=== PATIENT | male | born 1950 | race Caucasian/White ===

== ENCOUNTER → 2016-07-25 | Outpatient (CLI) | payer OTHER ==
[~2016-07-25] MED LIST: AMLO-110 PO; B-CO1TAB21 PO; FLUO10CA48 PO; FLUT0.15 INTNAS; GABA1CAP PO; LVT/20 PO; OMEGCAP2 PO; PANT40TA PO; TRIA37.5 PO; [UNRECOGNIZED DRUG - OTHER] TOP
[2016-07-25 17:58] LABS: BASO % 0.2 %; BASO ABS # 0.02 K/uL (0-0.2); COMPLETE YES; EOS % 2.2 %; HEMATOCRIT 45.9 % (42-52); IG% 0.2 %; LYMPH % 10.4 %; LYMPH ABS # 1.01 K/uL (1.2-3.4); MEAN CELL VOLUME 86.9 fL (80-100); MEAN CORPUSCULAR HEMOGLOBIN 31.1 pg (25-34); MEAN CORPUSCULAR HGB CONC 35.7 g/dl (32-36); MONO % 6.9 %; NEUT % 80.1 %; PLATELET COUNT 195 K/uL (130-400); RED BLOOD COUNT 5.28 M/uL (4.7-6.1); WHITE BLOOD COUNT 9.72 K/uL (4.8-10.8)
[2016-07-25 19:03] LABS: ALT/SGPT 28 U/L (12-78); AST/SGOT 12 U/L (15-37); BLOOD UREA NITROGEN 25 mg/dl (7-18); BUN/CREATININE RATIO 19.5 (10-20); CARBON DIOXIDE 23 mmol/L (21-32); CHLORIDE 105 mmol/L (98-107); CHOLESTEROL 235 mg/dl (0-200); GLUCOSE 99 mg/dl (70-99); POTASSIUM 3.8 mmol/L (3.5-5.1); SODIUM 140 mmol/L (136-145)
[2016-07-25 19:13] LABS: CHOLESTEROL/HDL RATIO 5.9; HDL CHOLESTEROL 40 mg/dl; LDL CHOLESTEROL CALCULATED 161 mg/dl; TRIGLYCERIDES 170 mg/dl (0-150); VERY LOW DENSITY LIPOPROT CALC 34 mg/dl
[2016-07-26 06:30] LABS: ESTIMATED AVERAGE GLUCOSE 120 mg/dl; HA1C FLAG Normal (Normal)
--- NOTE | 2016-07-30 13:55 | CODING QUERY MEDICAL NECESSITY ---
SUPPORTING DIAGNOSIS NEEDED Dr. Quezada, A supporting diagnosis is required for the test/procedure performed on this patient in order for us to be reimbursed by the patient's insurance. Please provide a supporting diagnosis for the following test/procedure listed below next to the test name along with your signature. *If there is no additional diagnosis for this patient that would support the following test/procedure please document that below next to the test/procedure. Test(s)/Procedure(s) that require a supporting diagnosis: * [id number] GLYCATED HEMOGLOBIN DIAGNOSIS: DATE OF SERVICE: 07/25/16 Provider Signature: Date: Thank you Ko Ragland [facility] Information Management Once completed, please kindly fax back to [phone] For questions please call [phone]
== END | disposition home or self-care (01) ==
LOC: C.LABMFLN 12:25
PROVIDERS: ATTEND Family Medicine
DX: I10 Essential (primary) hypertension (principal); E78.5 Hyperlipidemia, unspecified; R73.03 Prediabetes; R53.83 Other fatigue; R73.09 Other abnormal glucose

== ENCOUNTER → 2016-10-07 | Outpatient (CLI) | payer OTHER ==
[~2016-10-07] MED LIST changes: +OPTIRAY 320 IV PRN
--- NOTE | 2016-10-07 14:28 | DIAGNOSTIC IMAGING REPORT ---
CHEST CT WITH CONTRAST CT DOSE: 517.81 mGy.cm HISTORY: Cough. Esophagitis. Reflux. Z00.00 Health [id number] Chronic [id number] Chronic reflux e TECHNIQUE: Multiaxial CT images of the chest were performed following the intravenous administration of contrast. COMPARISON: None. FINDINGS: The lungs are clear. The mediastinal vascular structures are within normal limits. No mediastinal or hilar lymphadenopathy. No pleural effusion or pneumothorax. Limited views of the upper abdomen demonstrate a normal liver and spleen. IMPRESSION: No significant abnormality identified within the chest. Electronically signed by: Miguelangel Bishop M.D. 10/07/2016 2:27 PM Dictated Date/Time: 10/07/2016 2:20 PM
== END | disposition home or self-care (01) ==
LOC: C.CTS 13:54
PROVIDERS: ATTEND Physician Assistant
DX: Z00.00 Encounter for general adult medical examination without abnormal findings (principal); R05 Cough; K21.0 Gastro-esophageal reflux disease with esophagitis; J44.9 Chronic obstructive pulmonary disease, unspecified

== ENCOUNTER → 2016-10-15 | Outpatient (CLI) | payer OTHER ==
[~2016-10-15] MED LIST changes: -OPTIRAY 320 IV PRN
--- NOTE | 2016-10-16 11:11 | PULMONARY FUNCTION TEST ---
CLINICAL DATA: A 66-year-old male with a height of 68 inches and a weight [address] Elier Quezada for evaluation of a chronic cough. Spirometry pre- and post-bronchodilator and diffusion capacity was performed. FINDINGS: Pre-bronchodilator spirometry is within normal limits. FVC was 112% of predicted. FEV1 was 111% of predicted. The FEF 25-75 was 97% of predicted. There was no significant improvement after inhaled bronchodilator. Diffusion capacity was normal at 113% of predicted. IMPRESSION: Normal baseline spirometry and DLCO without significant improvement after inhaled bronchodilator. MTDD
== END | disposition home or self-care (01) ==
LOC: C.RC 11:07
PROVIDERS: ATTEND Physician Assistant
DX: Z00.00 Encounter for general adult medical examination without abnormal findings (principal); J44.9 Chronic obstructive pulmonary disease, unspecified; K21.0 Gastro-esophageal reflux disease with esophagitis; R05 Cough

== ENCOUNTER → 2016-11-25 | Outpatient (CLI) | payer OTHER ==
--- NOTE | 2016-11-25 09:39 | DIAGNOSTIC IMAGING REPORT ---
SINUS CT CT DOSE: 297.29 mGycm HISTORY: Sinusitis. Pain. R05 Chronic ogzxeF79.9 Chronic sinusitis TECHNIQUE: Multiaxial CT images of the paranasal sinuses were performed and reformatted in the coronal plane without the use of contrast. COMPARISON: 10/26/2015 FINDINGS: The frontal sinuses, ethmoid air cells, sphenoid sinuses, and bilateral maxillary antra are clear. The mastoid air cells are clear. The bilateral ostiomeatal units are patent. The nasal septum is midline. The orbits are unremarkable. IMPRESSION: The paranasal sinuses and mastoid air cells are clear. No change from the prior study. Electronically signed by: Miguelangel Bishop M.D. 11/25/2016 9:37 AM Dictated Date/Time: 11/25/2016 9:36 AM
== END | disposition home or self-care (01) ==
LOC: C.CTS 09:03
PROVIDERS: ATTEND Family Medicine
DX: R05 Cough (principal); J32.9 Chronic sinusitis, unspecified

== ENCOUNTER → 2017-07-01 | Outpatient (CLI) | payer OTHER ==
[2017-07-01 13:07] LABS: ALT/SGPT 32 U/L (12-78); AST/SGOT 15 U/L (15-37); BLOOD UREA NITROGEN 27 mg/dl (7-18); CALCIUM 9.3 mg/dl (8.5-10.1); CARBON DIOXIDE 31 mmol/L (21-32); CREATININE 1.43 mg/dl (0.60-1.40); GLUCOSE 111 mg/dl (70-99); POTASSIUM 4.3 mmol/L (3.5-5.1); SODIUM 136 mmol/L (136-145)
[2017-07-01 13:12] LABS: CHOLESTEROL 244 mg/dl (0-200); LDL CHOLESTEROL CALCULATED 174 mg/dl
== END | disposition home or self-care (01) ==
LOC: C.LABMFLN 10:33
PROVIDERS: ATTEND Family Medicine
DX: Z12.5 Encounter for screening for malignant neoplasm of prostate (principal); R51 Headache; I10 Essential (primary) hypertension; E78.5 Hyperlipidemia, unspecified

== ENCOUNTER 2019-09-07 17:01 | Inpatient (IN) ==
[2019-09-07] MEDS ORDERED: ASPIRIN CHEW 324 MG PO STA (17:24)
[2019-09-07] MEDS ORDERED: SODIUM CHLORIDE 0.9% 1000ML 1,000 ML IV SCH (17:30)
--- NOTE | 2019-09-07 17:38 | Emergency Department Note ---
Impression & Plan Chest pain, Breath shortness, A-fib ED Provider Note NAME: BETY CORCORAN AGE: 68 SEX: M : 1950 ARRIVES VIA: Walk-In INFORMANT: Patient ED PROVIDER(S): Davion Carlos DO CHIEF COMPLAINT: Chest pain and shortness of breath HPI: Patient is a 68-year-old male who was diagnosed with a viral pneumonia 3 weeks ago. He was treated for influenza A. He had coughing, shortness of breath and chest tightness at that time. He notes the coughing and shortness of breath and chest tightness have all been improving over the past 3 weeks up until 3 to 4 days ago. He notes the shortness of breath and chest tightness has been getting worse with exertion. He notes it is there constantly and has been there constantly for the past 3 weeks. He does admit to some sinus congestion and a stuffy nose for the past 3 to 4 days but notes that this has improved as he has been taking [id number] decongestants today. Patient does admit to a history of hypertension. His dad had an OR and in his 50s. He denies any recent trips travel coughing up blood history of blood clots history or history of clotting disorders. He denies smoking. ROS: See above HPI for pertinent positives & negatives. A total of 10 systems reviewed and were otherwise negative. PAST MEDICAL HISTORY:See Below PAST SURGICAL HISTORY:See Below FAMILY HISTORY:See Below SOCIAL HISTORY:See Below HOME MEDICATIONS:See Below ALLERGIES:See Below VITALS:See Below PHYSICAL EXAMINATION: GENERAL: Sitting up in bed, alert, well appearing, well nourished, no distress, non-toxic EYE EXAM: normal conjunctiva. OROPHARYNX: no exudate, no erythema, lips, buccal mucosa, and tongue normal and mucous membranes are moist NECK: supple, no nuchal rigidity, no adenopathy, non-tender LUNGS: Clear to auscultation. Normal chest wall mechanics HEART: no murmurs, S1 normal and S2 normal ABDOMEN: abdomen soft, non-tender, normo-active bowel sounds, no masses, no rebound or guarding. UPPER EXTREMITIES: upper extremities are grossly normal. LOWER EXTREMITIES: No pitting edema. calfs are equal B/L NEURO EXAM: Normal sensorium, cranial nerves II-XII grossly intact, normal speech, no gross weakness of arms, no gross weakness of legs. MEDICAL DECISION MAKING: Patient is a 68-year-old male with a past medical history of hypertension whose dad at the age of 52 from an OR presents the ER for chest pain and shortness of breath associated with exertion. He has had this intermittently for the past 3 weeks as he was recently diagnosed with influenza. He notes rece ntly over the past 3 to 4 days it has significantly worsened. Upon arrival IV was established blood work was obtained. Pulse ox is 90 to 92%. He was given aspirin. CBC shows no significant leukocytosis or anemia. Diet dimer was negative. BMP with LFTs bilirubin and troponin was unremarkable. Lipase was normal. Influenza AMB was negative. Chest x-ray without any focal infiltrate. On the monitor patient did have a run of wide-complex tachycardia which did appear to be consistent with A. fib has it was irregular. Patient and family were updated at bedside. Discussed with the hospitalist for observation. Hospitalist did request CT of the chest which was performed and unremarkable. Triage Nursing notes reviewed. Prior medical records reviewed Vital Signs: reviewed and remarkable for no significant abnormalities Differential diagnosis: Differential diagnoses includes but is not limited to acute coronary syndrome, myocardial infarction, pericarditis, pulmonary embolus, aortic dissection, pneumonia, pneumothorax, musculoskeletal, shingles, esophageal. ER treatment provided: See below Diagnostics interpreted by me: ECG: Sinus bradycardia rate of 57 Normal axis No PVCs Normal QTC Improvement from previous in regards to the lateral and high lateral leads and the T wave inversions are now resolved. Cardiac Monitoring: Sinus rhythm rate of 67 Laboratory studies: As stated above and show below. Imaging studies: Audible AP upright 1 view of the chest shows no focal infiltrate or pneumothorax Consultation(s): Dr. Adrián Spencer. 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 Beliefs That Will Affect Care: None Current Living Situation: Spouse Feels Safe at Home: Yes Smoking Status: Never smoker Tobacco Type: cigarettes ; Second Hand Exposure: No ; Hx Alcohol Use: No Hx Substance Use: No Allergies Allergies Allergy/AdvReac Type Severity Reaction Status Date / Time No Known Allergies Allergy Verified 09/07/19 19:40 Home Meds Home Medications Medication Instructions Recorded Confirmed pantoprazole 40 mg PO QAM 03/10/18 09/07/19 vitamin B complex 1 cap PO QAM 03/10/18 09/07/19 coenzyme Q10 10 mg capsule 10 mg PO DAILY cap 03/15/19 09/07/19 red yeast rice 600 mg capsule 600 mg PO BID 03/15/19 09/07/19 Lactobacillus acidophilus 1,000 mmu cells PO DAILY 05/11/19 09/07/19 [Probiotic Acidophilus] albuterol sulfate 2 puffs INH Q4H PRN 09/07/19 09/07/19 amlodipine 10 mg PO QPM 09/07/19 09/07/19 cyclobenzaprine 5 mg PO TID PRN 09/07/19 09/07/19 doxazosin 6 mg PO QPM 09/07/19 09/07/19 fluticasone propionate [Allergy 2 sprays INTRANASAL DAILY PRN 09/07/19 09/07/19 Relief (fluticasone)] meloxicam 15 mg PO DAILY PRN 09/07/19 09/07/19 Previous Rx's Medication Instructions Recorded fluoxetine 10 mg tablet 10 mg PO QAM #90 tab 01/18/19 Results & Data (ED) Vital Signs Vital Signs - 24 hr 09/07/19 17:09 09/07/19 17:44 09/07/19 17:48 Temperature 36.8 C Temperature Source Oral Pulse Rate 99 H 64 Pulse Rate from SpO2 Sensor 65 Respiratory Rate 18 21 Blood Pressure 132/67 137/72 Blood Pressure Mean 88 82 Pulse Oximetry 98 95 92 Oxygen Delivery Method Room Air Room Air Room Air Sepsis Recent Fever Within 48 Hours No Sepsis New/Unexplained Change in Mental Status No Sepsis Action Taken by Nursing No Action Required 09/07/19 18:04 09/07/19 19:00 Temperature Temperature Source Pulse Rate 61 63 Pulse Rate from SpO2 Sensor 62 63 Respiratory Rate 17 20 Blood Pressure 146/80 H Blood Pressure Mean 111 Pulse Oximetry 93 91 Oxygen Delivery Method Room Air Sepsis Recent Fever Within 48 Hours Sepsis New/Unexplained Change in Mental Status Sepsis Action Taken by Nursing Laboratory Data Result diagrams: 09/07/19 18:00 09/07/19 18:00 Lab Results 09/07/19 09/07/19 09/07/19 Range/Units 17:42 18:00 18:00 WBC 6.56 (4.8-10.8) K/uL RBC 4.28 L (4.7-6.1) M/uL Hgb 12.7 L (14.0-18.0) g/dL Hct 38.0 L (42-52) % MCV 88.8 (80-100) fL MCH 29.7 (25-34) pg MCHC 33.4 (32-36) g/dL RDW Std Deviation 49.3 H (36.4-46.3) fL RDW Coeff of Angie 15.3 H (11.5-14.5) % Plt Count 125 L (130-400) K/uL MPV 9.5 (7.4-10.4) fL Immature Gran % (Auto) 0.2 % Neut % (Auto) 76.9 % Lymph % (Auto) 13.4 % [place] % (Auto) 5.8 % Eos % (Auto) 3.5 % Baso % (Auto) 0.2 % Immature Gran # (Auto) 0.01 (0.00-0.02) K/uL Neut # (Auto) 5.05 (1.4-6.5) K/uL Lymph # (Auto) 0.88 L (1.2-3.4) K/uL [place] # (Auto) 0.38 (0.11-0.59) K/uL Eos # (Auto) 0.23 (0-0.5) K/uL Baso # (Auto) 0.01 (0-0.2) K/uL PT 11.0 (9.0-12.0) Seconds INR 1.0 (0.9-1.1) APTT 28.4 (21.0-31.0) Seconds PTT Ratio 1.0 D-Dimer 350 (0-500) ug/L FEU Sodium (136-145) mmol/L Potassium (3.5-5.1) mmol/L Chloride (98-107) mmol/L Carbon Dioxide (21-32) mmol/L Anion Gap (3-11) BUN (7-18) mg/dl Creatinine (0.6-1.4) mg/dl Est Cr Clr Drug Dosing ml/min Est GFR ( Amer) Est GFR (Non-Af Amer) BUN/Creatinine Ratio (10-20) Glucose (70-99) mg/dl Calcium (8.5-10.1) mg/dl Total Bilirubin (0.2-1) mg/dl AST (15-37) U/L ALT (12-78) U/L Alkaline Phosphatase (45-117) U/L Troponin I (0-0.045) ng/ml Total Protein (6.4-8.2) gm/dl Albumin (3.4-5.0) gm/dl Globulin (2.5-4.0) gm/dl Albumin/Globulin Ratio (0.9-2) Lipase (73-393) U/L Influenza Type A (PCR) Neg for Influ A (Neg) Influenza Type B (PCR) Neg for Influ B (Neg) 09/07/19 Range/Units 18:00 WBC (4.8-10.8) K/uL RBC (4.7-6.1) M/uL Hgb (14.0-18.0) g/dL Hct (42-52) % MCV (80-100) fL MCH (25-34) pg MCHC (32-36) g/dL RDW Std Deviation (36.4-46.3) fL RDW Coeff of Angie (11.5-14.5) % Plt Count (130-400) K/uL MPV (7.4-10.4) fL Immature Gran % (Auto) % Neut % (Auto) % Lymph % (Auto) % [place] % (Auto) % Eos % (Auto) % Baso % (Auto) % Immature Gran # (Auto) (0.00-0.02) K/uL Neut # (Auto) (1.4-6.5) K/uL Lymph # (Auto) (1.2-3.4) K/uL [place] # (Auto) (0.11-0.59) K/uL Eos # (Auto) (0-0.5) K/uL Baso # (Auto) (0-0.2) K/uL PT (9.0-12.0) Seconds INR (0.9-1.1) APTT (21.0-31.0) Seconds PTT Ratio D-Dimer (0-500) ug/L FEU Sodium 140 (136-145) mmol/L Potassium 4.1 (3.5-5.1) mmol/L Chloride 111 H (98-107) mmol/L Carbon Dioxide 25 (21-32) mmol/L Anion Gap 4.0 (3-11) BUN 27 H (7-18) mg/dl Creatinine 1.10 (0.6-1.4) mg/dl Est Cr Clr Drug Dosing 52.3 ml/min Est GFR ( Amer) 78.4 Est GFR (Non-Af Amer) 67.7 BUN/Creatinine Ratio 24.6 H (10-20) Glucose 117 H (70-99) mg/dl Calcium 8.4 L (8.5-10.1) mg/dl Total Bilirubin 0.6 (0.2-1) mg/dl AST 16 (15-37) U/L ALT 37 (12-78) U/L Alkaline Phosphatase 72 (45-117) U/L Troponin I < 0.015 (0-0.045) ng/ml Total Protein 6.4 (6.4-8.2) gm/dl Albumin 3.3 L (3.4-5.0) gm/dl Globulin 3.1 (2.5-4.0) gm/dl Albumin/Globulin Ratio 1.1 (0.9-2) Lipase 90 (73-393) U/L Influenza Type A (PCR) (Neg) Influenza Type B (PCR) (Neg) Administered Medications Discontinued Medications Aspirin (Aspirin) 324 mg PO NOW STA Stop: 09/07/19 17:25 Last Admin: 09/07/19 17:51 Dose: 324 mg Documented by: [id number] Sodium Chloride (Nss 1000ml) 1,000 mls @ 999 mls/hr IV .Q1H1M OC Stop: 09/07/19 18:30 Last Infusion: 09/07/19 20:33 Dose: 0 mls/hr Documented by: [id number] Admin: 09/07/19 18:10 Dose: 999 mls/hr Documented by: [id number] Discharge Plan Visit Data Chief Complaint: Congestion Stated Complaint: CHEST IS TIGHT, SOB ED Provider: Davion Carlos Discharge Problem: Chest pain, Breath shortness, A-fib Forms Stand Alone Forms: My [facility] Prescriptions Prescriptions: No Action fluoxetine 10 mg tablet 10 mg PO QAM Qty: 90 RF: 3 red yeast rice 600 mg capsule 600 mg PO BID RF: 0 coenzyme Q10 10 mg capsule 10 mg PO DAILY RF: 0 Probiotic Acidophilus 1.5 mg (250 million cell) Capsule 1,000 mmu cells PO DAILY RF: 0 pantoprazole 40 mg Tablet,Delayed Release (Dr/Ec) 40 mg PO QAM RF: 0 vitamin B complex Capsule 1 cap PO QAM RF: 0 amlodipine 10 mg tablet 10 mg PO QPM RF: 0 meloxicam 15 mg tablet 15 mg PO DAILY PRN (Reason: Acid Reflux) RF: 0 doxazosin 4 mg tablet 6 mg PO QPM RF: 0 albuterol sulfate 90 mcg/actuation HFA aerosol inhaler 2 puffs INH Q4H PRN (Reason: Shortness Of Breath Or Wheezing) RF: 0 fluticasone propionate [Allergy Relief (fluticasone)] 50 mcg/actuation spray,suspension 2 sprays intranasal DAILY PRN (Reason: Allergy Symptoms) RF: 0 cyclobenzaprine 5 mg tablet 5 mg PO TID PRN (Reason: Muscle Spasm) RF: 0 Discharge Problem: Chest pain Qualifiers: Chest pain type: unspecified Qualified Code(s): R07.9 - Chest pain, unspecified A-fib Qualifiers: Atrial fibrillation type: unspecified Qualified Code(s): I48.91 - Unspecified atrial fibrillation
--- NOTE | 2019-09-07 17:50 | XRay Report ---
XR chest 1V portable CLINICAL HISTORY: Chest Pain dyspnea COMPARISON STUDY: No previous studies for comparison. FINDINGS: The bones soft tissues and hemidiaphragms are normal. The cardiomediastinal silhouette is n ormal. The lungs are clear. The pulmonary vasculature is normal. IMPRESSION: Negative chest. ACT 112: Negative or not required by law. The above report was generated using voice recognition software. It may contain grammatical, syntax or spelling errors. Electronically signed by: Miguelangel Bishop M.D. 09/07/2019 5:48 PM
[2019-09-07 18:15] LABS: Basophils # (auto) 0.01 K/uL (0-0.2); Basophils % (auto) 0.2 %; Eosinophils # (auto) 0.23 K/uL (0-0.5); Eosinophils % (auto) 3.5 %; Hemoglobin 12.7 g/dL (14.0-18.0); Immature Granulocytes # (auto) 0.01 K/uL (0.00-0.02); Immature Granulocytes % (auto) 0.2 %; Lymphocytes # (auto) 0.88 K/uL (1.2-3.4); Lymphocytes % (auto) 13.4 %; Mean Corpuscular Hemoglobin 29.7 pg (25-34); Mean Corpuscular Hgb Conc 33.4 g/dL (32-36); Mean Corpuscular Volume 88.8 fL (80-100); Mean Platelet Volume 9.5 fL (7.4-10.4); Monocytes # (auto) 0.38 K/uL (0.11-0.59); Monocytes % (auto) 5.8 %; Neutrophils # (auto) 5.05 K/uL (1.4-6.5); Neutrophils % (auto) 76.9 %; Platelet Count 125 K/uL (130-400); RDW Coefficient of Variation 15.3 % (11.5-14.5); RDW Standard Deviation 49.3 fL (36.4-46.3); Red Blood Count 4.28 M/uL (4.7-6.1); White Blood Count 6.56 K/uL (4.8-10.8)
[2019-09-07 18:27] LABS: D Dimer 350 ug/L FEU (0-500); Partial Thromboplastin Time 28.4 Seconds (21.0-31.0)
[2019-09-07 18:32] LABS: Alanine Aminotransferase 37 U/L (12-78); Albumin Level 3.3 gm/dl (3.4-5.0); Aspartate Aminotransferase 16 U/L (15-37); BUN Creatinine Ratio 24.6 (10-20); Blood Urea Nitrogen 27 mg/dl (7-18); Calcium 8.4 mg/dl (8.5-10.1); Carbon Dioxide 25 mmol/L (21-32); Chloride 111 mmol/L (98-107); Creatinine Clr Calc Pharmacy 52.3 ml/min; Est GFR (African American) 78.4; Est GFR (Non-African American) 67.7; Glucose 117 mg/dl (70-99); Lipase 90 U/L (73-393); Potassium 4.1 mmol/L (3.5-5.1); Sodium 140 mmol/L (136-145)
[2019-09-07 18:37] LABS: Albumin Globulin Ratio 1.1 (0.9-2); Alkaline Phosphatase 72 U/L (45-117); Bilirubin,Total 0.6 mg/dl (0.2-1); Globulin 3.1 gm/dl (2.5-4.0); Total Protein 6.4 gm/dl (6.4-8.2); Troponin I < 0.015 ng/ml (0-0.045)
[2019-09-07 18:54] LABS: Influenza A virus by PCR Neg for Influ A (Neg); Influenza B virus by PCR Neg for Influ B (Neg)
--- NOTE | 2019-09-07 20:35 | CT Scan Report ---
CT chest wo con CT DOSE: 528.25 mGycm HISTORY: Dyspnea ? pna TECHNIQUE: Multiaxial CT images of the chest were performed without contrast. A dose lowering techni que was utilized adhering to the principles of ALARA. COMPARISON: 10/07/2016 FINDINGS: The lungs are clear. The mediastinal vascular structures are within normal limits. No media stinal or hilar lymphadenopathy. No pleural effusion or pneumothorax. Limited views of the upper abdo men demonstrate a normal liver and spleen. IMPRESSION: No acute process. Lungs are clear. ACT 112: Negative or not required by law. The above report was generated using voice recognition software. It may contain grammatical, syntax or spelling errors. Electronically signed by: Miguelangel Bishop M.D. 09/07/2019 8:34 PM
--- NOTE | 2019-09-07 22:59 | History & Physical Report ---
Date of Service September 07, 2019 Assessment & Plan (1) Bronchitis: COPD/chronic bronchitis- Duonebs every 4 hours while awake and every 2 hours when necessary. Ceftriaxone 1 g IV daily Pulmicort Respules 0.5 mg inhaled twice daily Methylprednisolone 40 mg IV every 8 hours Present on Admission?: Yes (2) COPD, mild: See above Present on Admission?: Yes (3) A-fib: Brief run of A. fib/hypertension/chest pain- The patient will be admitted to telemetry for serial cardiac enzymes, serial EKG's, cardiac rhythm monitoring and a 2-D echocardiogram with Dopplers. Continue amlodipine for now. Aspirin 81 mg daily. Present on Admission?: Yes (4) Chronic reflux esophagitis: Continue pantoprazole 40 mg daily Present on Admission?: Yes (5) Peripheral neuropathy: Continue cyclobenzaprine 5 mg 3 times daily as needed. Hold meloxicam for now. Present on Admission?: Yes (6) Chest pain: See above Present on Admission?: Yes (7) Hyperlipemia, fat-induced: Hold red yeast rice for now. Check a fasting lipid panel Present on Admission?: Yes Admission and Anticipated Discharge Date Admission Date: 09/07/2019 Anticipated date of discharge: 09/09/19 History of Present Illness Chief Complaint: The patient presents to the emergency department with worsening chest tightness, intermittently productive cough and shortness of breath over the past week. Primary Care Provider: Elier Quezada MD The patient is a 68-year-old male with a past medical history including COPD, chronic reflux esophagitis, colon adenoma, elevated PSA, ED, hyperlipidemia, benign essential hypertension, LINO, peripheral neuropathy, prediabetes, complete rotator cuff rupture and sleep apnea. He was diagnosed with influenza A pneumon ia 3 weeks ago, has completed treatment, but has had a persistent cough and weakness which is not returned to his baseline. He began to get worse again over the past week with chest tightness, shortness of breath and intermittently productive cough. He denies any recent travel or sick exposures. He was noted while in ED, to have a brief asymptomatic run of atrial fibrillation. Allergies Allergy/AdvReac Type Severity Reaction Status Date / Time No Known Allergies Allergy Verified 09/07/19 19:40 Home Medications Home Medications Medication Instructions Recorded Confirmed Type pantoprazole 40 mg PO QAM 03/10/18 09/07/19 History vitamin B complex 1 cap PO QAM 03/10/18 09/07/19 History fluoxetine 10 mg tablet 10 mg PO QAM #90 tab 01/18/19 09/07/19 Rx coenzyme Q10 10 mg capsule 10 mg PO DAILY cap 03/15/19 09/07/19 History red yeast rice 600 mg capsule 600 mg PO BID 03/15/19 09/07/19 History Lactobacillus acidophilus 1,000 mmu cells PO DAILY 05/11/19 09/07/19 History [Probiotic Acidophilus] albuterol sulfate 2 puffs INH Q4H PRN 09/07/19 09/07/19 History amlodipine 10 mg PO QPM 09/07/19 09/07/19 History cyclobenzaprine 5 mg PO TID PRN 09/07/19 09/07/19 History doxazosin 6 mg PO QPM 09/07/19 09/07/19 History fluticasone propionate [Allergy 2 sprays INTRANASAL DAILY PRN 09/07/19 09/07/19 History Relief (fluticasone)] meloxicam 15 mg PO DAILY PRN 09/07/19 09/07/19 History Past Med/Surg History Social History Preferred Language: Russian Communication Ability: Effective Retail Leasing Agent Required: No Beliefs That Will Affect Care: None Current Living Situation: Spouse Feels Safe at Home: Yes Smoking Status: Never smoker Tobacco Type: cigarettes ; Second Hand Exposure: No ; Hx Alcohol Use: No Hx Substance Use: No Review of Systems Review of Systems: The patient denies palpitations, lower extremity swelling, sore throat, fevers, chills, sweats, fatigue, nausea, vomiting, diarrhea , constipation, abdominal pain, pelvic pain, blood in urine or stool, dysuria, urinary frequency or urgency, lightheadedness, dizziness, headache, memory loss, loss of consciousness, rash, abnormal bruising or bleeding, imbalance, focal weakness, numbness or tingling in arms or legs, generalized arthralgias or myalgias, back or neck pain, or night sweats. The review of systems is otherwise negative other than for that already noted above, and at least 10 systems have been reviewed. Physical Exam Physical Exam: The patient is awake, alert and oriented 3, well developed and well nourished, normocephalic and atraumatic, lying in bed and in no acute distress. HEENT--PERRL, EOMI, mucous membranes and oropharynx normal. Neck--supple. No JVD. No bruits. Thyroid normal, trachea midline, no adenopathy. Heart--normal S1 and S2. No murmurs, rubs or gallops. Lungs--coarse breath sounds with scattered wheezes bilaterally. No respiratory distress, no accessory muscle use. Abdomen--normal bowel sounds and soft. Nontender. Nondistended. Extremities--no cyanosis or clubbing. No edema. Dermatologic--normal skin turgor, normal color, no abnormal lymph nodes, no rash. Neurologic--cranial nerves II through XII grossly intact. Rheumatologic--normal range of motion. Psychiatric--normal affect. Results & Data Results & Data ([facility]) Vital Signs (Past 12 Hours) Vital Signs Temp Pulse Resp BP Pulse Ox 09/07/19 22:00 63 18 161/90 H 96 09/07/19 21:30 70 18 158/92 H 96 09/07/19 21:00 73 18 173/95 H 97 09/07/19 20:31 67 18 156/73 H 95 09/07/19 19:31 65 19 163/79 H 92 09/07/19 19:00 63 20 146/80 H 91 09/07/19 18:04 61 17 93 09/07/19 17:48 64 21 137/72 92 09/07/19 17:44 95 09/07/19 17:09 98.2 F 99 H 18 132/67 98 Laboratory Results Laboratory Results WBC 6.56 K/uL (4.8-10.8) 09/07/19 18:00 RBC 4.28 M/uL (4.7-6.1) L 09/07/19 18:00 Hgb 12.7 g/dL (14.0-18.0) L 09/07/19 18:00 Hct 38.0 % (42-52) L 09/07/19 18:00 MCV 88.8 fL (80-100) 09/07/19 18:00 MCH 29.7 pg (25-34) 09/07/19 18:00 MCHC 33.4 g/dL (32-36) 09/07/19 18:00 RDW Std Deviation 49.3 fL (36.4-46.3) H 09/07/19 18:00 RDW Coeff of Angie 15.3 % (11.5-14.5) H 09/07/19 18:00 Plt Count 125 K/uL (130-400) L 09/07/19 18:00 MPV 9.5 fL (7.4-10.4) 09/07/19 18:00 Immature Gran % (Auto) 0.2 % 09/07/19 18:00 Neut % (Auto) 76.9 % 09/07/19 18:00 Lymph % (Auto) 13.4 % 09/07/19 18:00 [place] % (Auto) 5.8 % 09/07/19 18:00 Eos % (Auto) 3.5 % 09/07/19 18:00 Baso % (Auto) 0.2 % 09/07/19 18:00 Immature Gran # (Auto) 0.01 K/uL (0.00-0.02) 09/07/19 18:00 Neut # (Auto) 5.05 K/uL (1.4-6.5) 09/07/19 18:00 Lymph # (Auto) 0.88 K/uL (1.2-3.4) L 09/07/19 18:00 [place] # (Auto) 0.38 K/uL (0.11-0.59) 09/07/19 18:00 Eos # (Auto) 0.23 K/uL (0-0.5) 09/07/19 18:00 Baso # (Auto) 0.01 K/uL (0-0.2) 09/07/19 18:00 PT 11.0 Seconds (9.0-12.0) 09/07/19 18:00 INR 1.0 (0.9-1.1) 09/07/19 18:00 APTT 28.4 Seconds (21.0-31.0) 09/07/19 18:00 PTT Ratio 1.0 09/07/19 18:00 D-Dimer 350 ug/L FEU (0-500) 09/07/19 18:00 Sodium 140 mmol/L (136-145) 09/07/19 18:00 Potassium 4.1 mmol/L (3.5-5.1) 09/07/19 18:00 Chloride 111 mmol/L (98-107) H 09/07/19 18:00 Carbon Dioxide 25 mmol/L (21-32) 09/07/19 18:00 Anion Gap 4.0 (3-11) 09/07/19 18:00 BUN 27 mg/dl (7-18) H 09/07/19 18:00 Creatinine 1.10 mg/dl (0.6-1.4) 09/07/19 18:00 Est Cr Clr Drug Dosing 52.3 ml/min 09/07/19 18:00 Est GFR ( Amer) 78.4 09/07/19 18:00 Est GFR (Non-Af Amer) 67.7 09/07/19 18:00 BUN/Creatinine Ratio 24.6 (10-20) H 09/07/19 18:00 Glucose 117 mg/dl (70-99) H 09/07/19 18:00 Calcium 8.4 mg/dl (8.5-10.1) L 09/07/19 18:00 Total Bilirubin 0.6 mg/dl (0.2-1) 09/07/19 18:00 AST 16 U/L (15-37) 09/07/19 18:00 ALT 37 U/L (12-78) 09/07/19 18:00 Alkaline Phosphatase 72 U/L (45-117) 09/07/19 18:00 Troponin I < 0.015 ng/ml (0-0.045) 09/07/19 18:00 Total Protein 6.4 gm/dl (6.4-8.2) 09/07/19 18:00 Albumin 3.3 gm/dl (3.4-5.0) L 09/07/19 18:00 Globulin 3.1 gm/dl (2.5-4.0) 09/07/19 18:00 Albumin/Globulin Ratio 1.1 (0.9-2) 09/07/19 18:00 Lipase 90 U/L (73-393) 09/07/19 18:00 Influenza Type A (PCR) Neg for Influ A (Neg) 09/07/19 17:42 Influenza Type B (PCR) Neg for Influ B (Neg) 09/07/19 17:42 Diagnostic Findings [facility], [place] [phone] XRay Report Patient: BETY CORCORAN Date: 09/07/19 MR#: [id number]: [id number] [facility] [address] Acct ID:[id number]: Date: 1950[facility] Zip: [place] [address] Age: 68Location: ED Sex: M Room/Bed: Att Phy:Diagnosis: CHEST IS TIGHT, SOB Tati Phy: QuezadaElier gleason MDService Date: 09/07/19 Fam Phy:Interpreting Phy: Miguelangel Bishop MD Admit Phy: Ordering Phy: Davion Carlos, DO cc: ~ XR chest 1V portable CLINICAL HISTORY: Chest Pain dyspnea COMPARISON STUDY: No previous studies for comparison. FINDINGS: The bones soft tissues and hemidiaphragms are normal. The cardiomediastinal silhouette is normal. The lungs are clear. The pulmonary vasculature is normal. IMPRESSION: Negative chest. ACT 112: Negative or not required by law. The above report was generated using voice recognition software. It may contain grammatical, syntax or spelling errors. Electronically signed by: Miguelangel Bishop M.D. 09/07/2019 5:48 PM Dictated: 09/07/191747 Transcribed: 09/07/191747 [place], [place] [phone] CT Scan Report Patient: BETY CORCORAN Date: 09/07/19 MR#: [id number]: [id number] [facility] Acct ID:[id number]: Date: 1950[facility] Zip: [place] [address] Age: 68Location: ED Sex: M Room/Bed: Att Phy:Diagnosis: CHEST IS TIGHT, SOB Tati Phy: Elier Quezada MDService Date: 09/07/19 Fam Phy:Interpreting Phy: Miguelangel Bishop MD Admit Phy: Ordering Phy: Davion Carlos, DO cc: ~ CT chest wo con CT DOSE: 528.25 mGycm HISTORY: Dyspnea ? pna TECHNIQUE: Multiaxial CT images of the chest were performed without contrast. A dose lowering technique was utilized adhering to the principles of ALARA. COMPARISON: 10/07/2016 FINDINGS: The lungs are clear. The mediastinal vascular structures are within normal limits. No mediastinal or hilar lymphadenopathy. No pleural effusion or pneumothorax. Limited views of the upper abdomen demonstrate a normal liver and spleen. IMPRESSION: No acute process. Lungs are clear. ACT 112: Negative or not required by law. The above report was generated using voice recognition software. It may contain grammatical, syntax or spelling errors. Electronically signed by: Miguelangel Bishop M.D. 09/07/2019 8:34 PM Dictated: 09/07/192030 Transcribed: 09/07/192030 Code Status & VTE Plan Code Status Full code VTE Prophylaxis Plan VTE Prophylaxis will be ordered: Yes PG Care Time/CCT Total # of Minutes Spent Total Time Spent with Patient: Total time spent is greater than 50% in coordination of care (as documented) at patient's floor/unit and/or counseling patient: Coding Level of Care Code 40513 Initial Inpt Care Lvl 3 Diagnoses Bronchitis J40 COPD, mild J44.9 A-fib I48.91 Atrial fibrillation type: unspecified Chronic reflux esophagitis K21.0 Peripheral neuropathy G62.9 Chest pain R07.9 Chest pain type: unspecified Hyperlipemia, fat-induced E78.49 (1) A-fib Atrial fibrillation type: unspecified Qualified Code(s): I48.91 - Unspecified atrial fibrillation (2) Chest pain Chest pain type: unspecified Qualified Code(s): R07.9 - Chest pain, unspecified
[2019-09-07] MEDS ORDERED: CYCLOBENZAPRINE HCL 5 MG TAB PO PRN (23:53)
[2019-09-07] MEDS ORDERED: FLUTICASONE PROPIONATE NA SPR 16 GM BTL NAE PRN (23:53)
[2019-09-07] MEDS ORDERED: ALUMINUM/MAGNESIUM SUSP 30 ML UDC PO PRN (23:53)
[2019-09-07] MEDS ORDERED: MAGNESIUM HYDROXIDE SUSP 30 ML UDC PO PRN (23:53)
[2019-09-07] MEDS ORDERED: ONDANSETRON INJ 2 MG/ML 2 ML VIAL IV PRN (23:53)
[2019-09-07] MEDS ORDERED: POLYETHYLENE (MIRALAX) 17 GM PACK PO PRN (23:53)
[2019-09-07] MEDS ORDERED: ACETAMINOPHEN 325 MG TAB PO PRN (23:53)
[2019-09-08] MEDS ORDERED: cefTRIAXone SODIUM 1,000 MG in DEXTROSE 5% 50 ML IV SCH
[2019-09-08] MEDS ORDERED: INFLUENZA VACCINE HIGH DOSE 65+ 0.5 ML SYR IM ONE (00:17)
[2019-09-08] MEDS ORDERED: PNEUMOCOCCAL ADMINISTRATION CHARGE ONE (00:17)
[2019-09-08] MEDS ORDERED: PNEUMOCOCCAL POLYSACCHARIDES 25 MCG/0.5 ML VIAL/SYR IM ONE (00:17)
[2019-09-08] MEDS ORDERED: INFLUENZA ADMINISTRATION CHARGE ONE (00:17)
[2019-09-08] MEDS: methylPREDNISolone 40 MG in SYRINGE 0 ML IV SCH ×2 (00:53→08:06)
[2019-09-08] MEDS ORDERED: BUDESONIDE 0.5 MG/2 ML VIAL (PULMICORT) NEB SCH (07:00)
[2019-09-08] MEDS: ALBUT/IPRATROP 3MG/0.5MG NEB 3 ML VIAL NEB SCH ×2 (07:50→11:07)
[2019-09-08 07:59] LABS: INR 1.1 (0.9-1.1); Prothrombin Time 11.2 Seconds (9.0-12.0)
[2019-09-08 08:16] LABS: Alanine Aminotransferase 41 U/L (12-78); Albumin Level 3.9 gm/dl (3.4-5.0); Aspartate Aminotransferase 18 U/L (15-37); BUN Creatinine Ratio 17.3 (10-20); Blood Urea Nitrogen 18 mg/dl (7-18); Calcium 8.7 mg/dl (8.5-10.1); Carbon Dioxide 26 mmol/L (21-32); Chloride 108 mmol/L (98-107); Creatinine Clr Calc Pharmacy 67.1 ml/min; Est GFR (African American) 83.9; Est GFR (Non-African American) 72.4; Glucose 161 mg/dl (70-99); Magnesium 2.1 mg/dl (1.8-2.4); Sodium 138 mmol/L (136-145)
[2019-09-08 08:22] LABS: Eosinophils # (auto) 0.01 K/uL (0-0.5); Eosinophils % (auto) 0.2 %; Hematocrit (blood only) 45.2 % (42-52); Hemoglobin 15.5 g/dL (14.0-18.0); Immature Granulocytes # (auto) 0.01 K/uL (0.00-0.02); Immature Granulocytes % (auto) 0.2 %; Lymphocytes # (auto) 0.37 K/uL (1.2-3.4); Mean Corpuscular Hemoglobin 30.2 pg (25-34); Mean Corpuscular Hgb Conc 34.3 g/dL (32-36); Mean Corpuscular Volume 87.9 fL (80-100); Mean Platelet Volume 9.7 fL (7.4-10.4); Monocytes # (auto) 0.05 K/uL (0.11-0.59); Monocytes % (auto) 0.8 %; Neutrophils # (auto) 5.71 K/uL (1.4-6.5); Neutrophils % (auto) 92.8 %; Platelet Count 132 K/uL (130-400); RDW Coefficient of Variation 14.5 % (11.5-14.5); RDW Standard Deviation 47.1 fL (36.4-46.3); Red Blood Count 5.14 M/uL (4.7-6.1); White Blood Count 6.15 K/uL (4.8-10.8)
[2019-09-08 08:26] LABS: Alkaline Phosphatase 90 U/L (45-117); Bilirubin,Total 0.8 mg/dl (0.2-1); Globulin 4.1 gm/dl (2.5-4.0); Troponin I < 0.015 ng/ml (0-0.045)
[2019-09-08] MEDS ORDERED: FLUOXETINE HCL 10 MG CAP PO SCH (09:00)
[2019-09-08] MEDS ORDERED: LACTOBACILLUS ACIDOPHILUS (FLORANEX) TAB PO SCH (09:00)
[2019-09-08] MEDS ORDERED: VITAMIN B COMPLEX TAB PO SCH (09:00)
[2019-09-08] MEDS ORDERED: NON-FORMULARY MEDICATION (Coenzyme Q10 10 MG) PO SCH (09:00)
[2019-09-08] MEDS ORDERED: PANTOprazole 40 MG TAB PO SCH (09:00)
[2019-09-08] MEDS ORDERED: ASPIRIN 81 MG ECTAB PO SCH (09:00)
[2019-09-08] MEDS ORDERED: guaiFENesin 600 MG TABCR PO SCH (09:00)
--- NOTE | 2019-09-08 12:43 | XCELERA ---
[id number] [id number]
--- NOTE | 2019-09-08 14:00 | Electrocardiogram Report ---
Test Reason : Blood Pressure : / mmHG Vent. Rate : 057 BPM Atrial Rate : 057 BPM P-R Int : 196 ms QRS Dur : 088 ms QT Int : 408 ms P-R-T Axes : 027 -10 032 degrees QTc Int : 397 ms Sinus bradycardia Otherwise normal ECG When compared with ECG of 27-DEC-2015 14:50, Nonspecific T wave abnormality no longer evident in Lateral leads Confirmed by Jason Escobedo ([id number]) on 09/08/2019 2:00:11 PM Referred By: REFERRED SELF Confirmed By:Jason Escobedo
--- NOTE | 2019-09-08 14:07 | Electrocardiogram Report ---
Test Reason : Blood Pressure : / mmHG Vent. Rate : 071 BPM Atrial Rate : 071 BPM P-R Int : 188 ms QRS Dur : 090 ms QT Int : 400 ms P-R-T Axes : 045 -10 054 degrees QTc Int : 434 ms Normal sinus rhythm Normal ECG When compared with ECG of 07-SEP-2019 17:44, (unconfirmed) No significant change was found Confirmed by Jason Escobedo ([id number]) on 09/08/2019 2:07:37 PM Referred By: REFERRED SELF Confirmed By:Jason Escobedo
--- NOTE | 2019-09-08 20:33 | Discharge Summary ---
Date of Service September 08, 2019 Admission HPI Per Admitting Provider The patient is a 68-year-old male with a past medical history including COPD, chronic reflux esophagitis, colon adenoma, elevated PSA, ED, hyperlipidemia, benign essential hypertension, LINO, peripheral neuropathy, prediabetes, complete rotator cuff rupture and sleep apnea. He was diagnosed with influenza A pneumonia 3 weeks ago, has completed treatment, but has had a persistent cough and weakness which is not returned to his baseline. He began to get worse again over the past week with chest tightness, shortness of breath and intermittently productive cough. He denies any recent travel or sick exposures. He was noted while in ED, to have a brief asymptomatic run of atrial fibrillation. Principal Diagnosis COPD / bronchitis exacerbation Discharge Exam Constitutional WD/WN, vitals as above Eyes PERRL, conjunctivae normal, anicteric sclerae ENMT external ear and nose normal, oropharynx normal Neck trachea midline, no thyromegaly Respiratory normal respiratory effort, lungs clear to auscultation Cardiovascular RRR, no murmur, no edema Gastrointestinal (Abdomen) normal bowel sounds, soft, nontender, no hepatosplenomegaly Musculoskeletal no cyanosis or clubbing, extremities motor strength 5/5 Skin no rashes, warm and dry Neurologic patellar DTR's 2+ bilat, sensation intact and PERRL, EOMI, accommodation nl, no face palsy, no dysarthria Psychiatric A+Ox3, euthymic affect Lymphatic no cervical or axillary lymphadenopathy Discharge Data Allergies Allergy/AdvReac Type Severity Reaction Status Date / Time No Known Allergies Allergy Verified 09/07/19 19:40 Consultations 09/07/19 19:31 ED Decision to Admit Stat 09/07/19 23:53 Consult Case Management - Discharge Planning Routine Ordered Studies 09/07/19 19:31 CT chest wo con Stat Hospital Course (1) Bronchitis: COPD/chronic bronchitis- treated with Duonebs, helped symptoms a great deal also given Rocephin and steroids do not see a role for antibiotics on discharge, cough is non-productive, no infiltrates on imaging will d/c home on Prednisone, arrange for home nebulizer with albuterol neb treatments follow up with PCP (2) COPD, mild: See above (3) A-fib: Brief run of A. fib while in the ED reviewed extensively with the central supply tech, no other episodes captured will set up for 30 day event monitor to see if he is having atrial fibrillation at home if so then would need anticoagulation echocardiogram was normal here Continue amlodipine for now. Aspirin 81 mg daily. (4) Chronic reflux esophagitis: Continue pantoprazole 40 mg daily (5) Peripheral neuropathy: Continue cyclobenzaprine 5 mg 3 times daily as needed. (6) Chest pain: See above (7) Hyperlipemia, fat-induced: Hold red yeast rice for now. Check a fasting lipid panel Total Time Total Time Spent Total Time Spent (In Minutes): 32 minutes Total Time Includes: Examination of the Patient, Discharge Planning and Medication Reconciliation Discharge Plan Discharge Items Patient Disposition: Home - Self-Care Reason For Visit: BRONCHITISM CHEST PAIN Discharge Diagnosis: Bronchitis Very brief run of atrial fibrillation Condition on Discharge: Good Goals: treat bronchitis with short course of Prednisone, nebulizers wear event monitor for 30 days to look for any runs of atrial fibrillation Activity: Resume your previous activity Driving/Machine Use: No limitations Weightbearing: Full weightbearing Non-emergency contact: Primary Care Provider Call non-emergency contact if: you have any medication questions Follow-up/Referrals: Elier Montgomery MD [Primary Care Provider] - 09/16/19 11:30 am (3-4 weeks A CARDIAC EVENT MONITOR WILL BE MAILED TO YOUR HOME. THE KIT WILL INCLUDE EASY TO FOLLOW INSTRUCTIONS. THE RESULTS WILL BE SENT TO DR. MONTGOMERY. A NEBULIZER MACHINE AND MEDICATION TO USE IN THE NEBULIZER WILL BE DELIVERED TO YOUR HOME BY [facility]. IF YOU HAVE ANY QUESTIONS ABOUT THIS, CALL THEIR OFFICE AT [phone].) Diet: Regular Addtl Attending Provider Instructions: Medications: - PREDNISONE: take 40mg daily x 3 more days, start tomorrow - ALBUTEROL NEBULIZER: use four times a day as needed, completed script with window caser, nebulizer should be delivered to your home Bronchitis: lungs are clear, no wheezing, CT of the chest showed no pneumonia or other pathology improved with steroids and nebulizers will prescribe Prednisone and I ordered you a home nebulizer Atrial fibrillation: very brief run while in the emergency room, no further episodes caught on the monitor will arrange for a 30 day event monitor to wear at home, this will capture any episodes of atrial fibrillation that you have at home, if any results will go to Dr. Montgomery follow up with Dr. Montgomery in 30 days Pending Studies at Discharge: No Stand-Alone Forms: [facility], Smoking Cessation Medications and DC Order Prescriptions: Continued fluoxetine 10 mg tablet 10 mg PO QAM Qty: 90 RF: 3 red yeast rice 600 mg capsule 600 mg PO BID RF: 0 coenzyme Q10 10 mg capsule 10 mg PO DAILY RF: 0 Probiotic Acidophilus 1.5 mg (250 million cell) Capsule 1,000 mmu cells PO DAILY RF: 0 pantoprazole 40 mg Tablet,Delayed Release (Dr/Ec) 40 mg PO QAM RF: 0 vitamin B complex Capsule 1 cap PO QAM RF: 0 amlodipine 10 mg tablet 10 mg PO QPM RF: 0 meloxicam 15 mg tablet 15 mg PO DAILY PRN (Reason: Acid Reflux) RF: 0 doxazosin 4 mg tablet 6 mg PO QPM RF: 0 albuterol sulfate 90 mcg/actuation HFA aerosol inhaler 2 puffs INH Q4H PRN (Reason: Shortness Of Breath Or Wheezing) RF: 0 fluticasone propionate [Allergy Relief (fluticasone)] 50 mcg/actuation spray,suspension 2 sprays intranasal DAILY PRN (Reason: Allergy Symptoms) RF: 0 cyclobenzaprine 5 mg tablet 5 mg PO TID PRN (Reason: Muscle Spasm) RF: 0 Discharge Orders: Discharge Order (Routine); Ordered 09/08/19 Ordered By: Fermin Burrell Admission Data Admit Date/Time: 09/07/19 22:58 Attending Provider: Fermin Burrell Admit Provider: Adrián Spencer Primary Care Provider: Elier Montgomery Other Providers: Adrián Spencer Other Interventions: Discharge Summary Assessment (RN) Last Done: 09/08/19 12:25 DC Date/Time DO NOT enter until pt leaves facility: 09/08/19 14:15 Coding Level of Care Code D/C Day Management >30 mins Diagnoses Bronchitis J40 COPD, mild J44.9 A-fib I48.91 Atrial fibrillation type: unspecified Chronic reflux esophagitis K21.0 Peripheral neuropathy G62.9 Chest pain R07.9 Chest pain type: unspecified Hyperlipemia, fat-induced E78.49
[2019-09-08] MEDS ORDERED: AMLODIPINE BESYLATE 5 MG TAB PO SCH (21:00)
[2019-09-08] MEDS ORDERED: DOXAZosin MESYLATE TAB 2 MG TAB PO SCH (21:00)
== END 2019-09-08 14:15 | disposition home or self-care (01) | DRG 192 ==
LOC: ED 17:01 → SUATTDRO 22:58 → 2E 22:58
DX: G62.9 Polyneuropathy, unspecified; I48.91 Unspecified atrial fibrillation; G47.33 Obstructive sleep apnea (adult) (pediatric); E78.5 Hyperlipidemia, unspecified; I10 Essential (primary) hypertension; J44.9 Chronic obstructive pulmonary disease, unspecified; R07.89 Other chest pain; K21.0 Gastro-esophageal reflux disease with esophagitis